=== PATIENT | female | born 1985 | race Caucasian/White ===

== ENCOUNTER 2023-07-15 21:57 | Emergency (ER) | payer BC, SELFPAY ==
[2023-07-15 22:01] VITALS: BP 135/97
[2023-07-15 22:46] LABS: Urine Albumin 3+ (Neg - Trace); Urine Bilirubin Negative (Negative); Urine Character Bloody (Clear); Urine Color Red; Urine Glucose Negative (Negative); Urine Ketone 1+ (Negative); Urine Leukocyte Negative (Negative); Urine Nitrite Negative (Negative); Urine Occult Blood 3+ (Negative); Urine Urobilinogen Negative (Neg - 1+)
[2023-07-15 22:48] LABS: Urine Red Blood Cell >100 /HPF (0-2)
--- NOTE | 2023-07-15 23:16 | ED.GENMED ---
History of Present Illness
General
Chief Complaint: Urinary Symptoms
Source: patient
Exam Limitations: none
Time Seen by Provider: 07/15/23 22:25
Nursing documentation reviewed up to this point in time: agreed with
Travel History
Have you had any contact with someone who has COVID-19?: No
Do you have any symptoms of coronavirus? Fever > 100 degrees, chills, cough, shortness of breath, sore throat, loss of taste or smell, muscle aches, or headache?: No
History of Present Illness
History of Present Illness:
Patient to ED with complaint of hematuria. Symptoms started this AM. Reports urinary frequency and burning with urination. Denies fever/chills. Brought self to ED for eval.
Past History
Past History
ED Past Medical History: None
ED Past Surgical History: and Gynecological (hysterectomy)
Social History
Tobacco: Non-smoker
Alcohol: Occasional
Drug: Marijuana (occasional)
Review of Systems
Review of Systems
Allergies reviewed?: Yes
All Other Systems: ROS reviewed and negative except as documented in HPI and ROS
Constitutional: Reports no symptoms
EENT: Reports no symptoms
Respiratory: Reports no symptoms
Cardiac: Reports no symptoms
ABD/GI: Reports no symptoms
: Reports dysuria, frequency, urgency and bleeding
Musculoskeletal: Reports no symptoms
Skin: Reports no symptoms
Neurological: Reports no symptoms
Psychiatric: Reports no symptoms
Phy Exam
General Physical Exam
General Presentation: well appearing and no apparent distress
General age: appears stated age
General Skin: warm and dry
General Habitus: normal
General Mental: alert
Gastrointestinal Exam
Gastrointestinal Exam: soft and non distended
Musculoskeletal Exam
Musculoskeletal Exam: full ROM
Skin Exam
Skin Exam: normal color
Psychiatric Exam
Psychiatric Exam: normal mood/affect
Course
Orders/Labs/Results
Orders:
Orders
07/15/23 22:09
Urinalysis Reflex To Culture Urgent
Date Specimen was Collected: 07/15/23
Time Specimen was Collected: 22:05
Urine Microscopic Reflex Cult Urgent
07/15/23 23:12
Ciprofloxacin HCl [Cipro] 250 mg PO NOW STA
Abnormal Lab Results
07/15/23
22:09
Urine Ketones 1+ A
(Negative)
Ur Occult Blood Reflex 3+ A
(Negative)
Urine RBC >100 A /HPF
(0-2)
Urine Albumin (Reflex) 3+ A
(Neg - Trace)
Vital Signs
Initial and Last Documented VS:
Initial Vital Signs
Temp Pulse Resp BP Pulse Ox
98.2 F 98 16 135/97 100
07/15/23 22:01 07/15/23 22:01 07/15/23 22:01 07/15/23 22:01 07/15/23 22:01
Last Documented Vital Signs
Temp Pulse Resp BP Pulse Ox
98.2 F 98 16 135/97 100
07/15/23 22:01 07/15/23 22:01 07/15/23 22:01 07/15/23 22:01 07/15/23 22:01
*Critical Care Note
Total Time (30-74mins, 75-104mins- exclusive of procedures): Not Applicable
ED Attending Note
-
Portions of this chart may have been created with voice recognition software.� Occasional wrong word or��sound alike� substitutions may have occurred due to the inherent limitations of voice recognition software.
Discharge Plan
Departure
Patient Disposition: Home (Routine Discharge)
Date of Disposition: 07/15/23
Time of Disposition: 23:13
Patient with high blood pressure during this ER visit?: No
Condition: Good
Covid-19: Not Applicable
Discharge Problem:
Urinary tract infection
Instructions: Urinary Tract Infection, Adult (DC), Blood in the Urine (Hematuria), Adult (DC)
Prescriptions:
New
ciprofloxacin HCl [Cipro] 250 mg tablet
250 mg PO BID Qty: 10 0RF
Referrals:
Shelia Macedo, DO [Active] -
NONE,* [Family Provider] -
Activity Restrictions/Additional Instructions:
Return to the emergency department immediately for any changes in/worsening of your symptoms.
Interventions
Interventions:
*Risk Screen - Suicide Last Done: 07/15/23 22:01
*General Assessment Last Done: 07/15/23 22:01
*Neglect/Abuse Screening Last Done: 07/15/23 22:01
ED- Fall Risk Assessment Last Done: 07/15/23 22:32
*ED COVID-19 Vaccine History Last Done: 07/15/23 22:01
ED-Female Genitourinary Assessment Last Done: 07/15/23 22:32
Discharge Date and Time
Print Language: DIVEHI
[2023-07-15] MEDS: CIPRO 250 MG PO (23:28)
== END 2023-07-15 23:32 | disposition home or self-care (01) ==
LOC: EMR 21:57
PROVIDERS: Emergency Medicine; EMERGENCY PHYSICIAN Emergency Medicine
DX: N39.0 Urinary tract infection, site not specified (principal); Z90.710 Acquired absence of both cervix and uterus
CPT/HCPCS: 99282; 81003; 81015